=== PATIENT | male | born 1950 | race Caucasian/White ===

== ENCOUNTER → 2016-06-26 | Outpatient (CLI) | payer MEDICARE, MEDICAID ==
[~2016-06-26] MED LIST: AVPAK AZITHROM250 MG PO
[2016-06-26 13:05] LABS: HEMOGLOBIN 15.5 g/dL (14.1-18.0)
[2016-06-26 13:06] LABS: LYMPH # 1.9 K/mm3 (0.7-4.5); LYMPH % 20.9 % (10-50)
[2016-06-26 13:23] LABS: BUN 17 mg/dL (7-18)
[2016-06-26 13:27] LABS: GFR (ESTIMATED) 55 ML/MIN (>60)
--- NOTE | 2016-06-26 14:41 | RADIOLOGY REPORT PS360 ---
CT HEAD-W/WO CONTRAST INDICATION: Syncope, history of lung cancer HX OF LUNG CANCER ORDERING PHYSICIAN: Micha Lee MD PATIENT AGE: 65 years COMPARISON: None TECHNIQUE: Axial images are obtained without and with contrast. 100 mL Isovue-300 administered intravenously FINDINGS: No midline shift, mass effect, intracranial hemorrhage, or hydrocephalus is evident. No enhancing lesions are evident. There is normal lopez-white matter differentiation. No lytic or blastic lesions of the calvarium small amount fluid is present in left mastoid sinus. No sinus air-fluid level is evident. IMPRESSION: Negative CT head without and with contrast
== END ==
LOC: LAB 12:55 → RAD 12:55
PROVIDERS: Internal Medicine
DX: C34.91 Malignant neoplasm of unspecified part of right bronchus or lung (principal)
CPT/HCPCS: Q9967

== ENCOUNTER → 2016-12-30 | Outpatient (CLI) | payer MEDICARE, MEDICAID ==
[2016-12-30 14:21] LABS: LYMPH # 0.7 K/mm3 (0.7-4.5); LYMPH % 12.8 % (10-50)
--- NOTE | 2016-12-30 14:25 | RADIOLOGY REPORT PS360 ---
CHEST(2 VIEWS-NOT PORTABLE) HISTORY: COUGH,LEFT SIDE PAIN,H/O LUNG CA ORDERING PHYSICIAN: FAUSTINO MIRANDA PATIENT AGE: 66 years COMPARISON: 06/11/2016 FINDINGS: Normal heart size. Cardiac pacemaker device is present. Mediport catheter is present from a right subclavian approach. Previously noted right perihilar mass and right hilar adenopathy has improved. There is patchy density in the right upper lobe which is developed in the interval suggesting an area of pneumonia. No effusions. No acute bony anomalies. IMPRESSION: Improvement in the right perihilar mass and mediastinal and hilar adenopathy. Right upper lobe infiltrate.
[2016-12-30 14:37] LABS: HEMOGLOBIN 9.2 g/dL (14.1-18.0)
[2016-12-30 19:01] LABS: BUN 13 mg/dL (7-18)
[2016-12-30 19:06] LABS: GFR (ESTIMATED) 75 ML/MIN (>60)
== END ==
LOC: LAB 13:51
PROVIDERS: Physician Assistant
DX: R05 Cough (principal); M79.622 Pain in left upper arm; Z85.118 Personal history of other malignant neoplasm of bronchus and lung